=== PATIENT | female | born 1960 ===

== ENCOUNTER → 2020-10-23 | Outpatient (CLI) | payer OTHER | END | disposition home or self-care (01) | LOC: LAB 10:03 | PROVIDERS: ATTEND Emergency Medicine Pediatric Emergency Medicine | DX: Z03.818 Encounter for observation for suspected exposure to other biological agents ruled out (principal) ==

== ENCOUNTER 2020-12-26 08:00 | Outpatient (CLI) | payer OTHER | END 2020-12-26 08:15 | disposition home or self-care (01) | LOC: PPH VACUNA 08:00 | PROVIDERS: ATTEND Emergency Medicine Pediatric Emergency Medicine | DX: Z23 Encounter for immunization (principal) ==

== ENCOUNTER 2021-01-30 09:23 | Outpatient (CLI) | payer OTHER | END 2021-01-30 09:30 | disposition home or self-care (01) | LOC: RAD 09:23 | PROVIDERS: ATTEND General Practice | DX: I10 Essential (primary) hypertension (principal); J20.8 Acute bronchitis due to other specified organisms ==

== ENCOUNTER 2021-02-13 08:00 | Outpatient (CLI) | payer OTHER | END 2021-02-13 08:30 | disposition home or self-care (01) | LOC: PPH VACUNA 08:00 | PROVIDERS: ATTEND Emergency Medicine Pediatric Emergency Medicine | DX: Z23 Encounter for immunization (principal) ==

== ENCOUNTER 2021-11-17 14:47 | Emergency (ER) | payer OTHER | END 2021-11-17 21:29 | disposition home or self-care (01) | LOC: ER 14:47 | DX: L03.115 Cellulitis of right lower limb (principal); M77.31 Calcaneal spur, right foot; E11.9 Type 2 diabetes mellitus without complications ==

== ENCOUNTER 2021-12-03 08:00 | Outpatient (CLI) | payer OTHER ==
[~2021-12-03 08:00] MED LIST: AVALIDE 300-121 EACH; NIFEDIPINE20 MG; SYNTHROID137 MCG
== END 2021-12-03 08:05 | disposition home or self-care (01) ==
LOC: PPH VACUNA 08:00
PROVIDERS: ATTEND Emergency Medicine Pediatric Emergency Medicine
DX: Z23 Encounter for immunization (principal)

== ENCOUNTER 2022-01-14 09:08 | Outpatient (CLI) | payer OTHER | END 2022-01-14 09:10 | disposition home or self-care (01) | LOC: MAMO-SONO 09:08 | PROVIDERS: ATTEND Surgery | DX: Z12.31 Encounter for screening mammogram for malignant neoplasm of breast (principal) ==

== ENCOUNTER 2022-04-14 14:46 | Outpatient (CLI) | payer OTHER | END 2022-04-14 14:52 | disposition home or self-care (01) | LOC: RAD 14:46 | DX: R05.9 Cough, unspecified (principal) ==

== ENCOUNTER 2023-02-23 11:50 | Outpatient (CLI) | payer OTHER | END 2023-02-23 12:05 | disposition home or self-care (01) | LOC: RAD 11:50 | DX: J10.08 Influenza due to other identified influenza virus with other specified pneumonia (principal) ==

== ENCOUNTER 2024-12-04 07:25 | Outpatient (CLI) | payer OTHER | END 2024-12-04 07:26 | disposition home or self-care (01) | LOC: NUCLEAR 07:25 | DX: R06.09 Other forms of dyspnea (principal) ==